=== PATIENT | male | born 1945 | race Caucasian/White ===

== ENCOUNTER 2019-02-01 15:06 | Inpatient (IN) | payer MEDICARE, OTHER ==
[~2019-02-01] VITALS: Ht 170.2 cm; Wt 112.5 kg
[2019-02-01] MEDS ORDERED: PIPERACILLIN/TAZOBACTAM 4.5 GM in IV NORMAL SALINE 100ML 100 ML IV ONE (16:15)
[2019-02-01] MEDS ORDERED: MORPHINE SULFATE 10 MG/ML VIAL. IV ONE ×2 (16:15→17:45)
[2019-02-01] MEDS ORDERED: VANCOMYCIN PER PHARMACY MC ONE (16:15)
[2019-02-01] MEDS ORDERED: LIDOCAINE 1%/EPI 1:100,000 20 ML VIAL. INJ ONE (16:15)
[2019-02-01] MEDS ORDERED: DIPHTH,PERTUSS(ACELL),TET TOX 0.5 ML DISP.SYRIN. VAX IM ONE (16:15)
[2019-02-01 16:24] LABS: BASO % 0 % (0-3); EOS # 0.1 x10^3/uL (0.0-0.7); EOS % 2 % (0-3); HEMATOCRIT 42.3 % (39.0-53.0); HEMOGLOBIN 14.5 g/dL (13.0-17.5); LYMPH # 0.6 x10^3/uL (1.0-4.8); LYMPH % 9 % (24-48); MEAN CORPUSCULAR HEMOGLOBIN 32 pg (25-35); MEAN CORPUSCULAR HGB CONC 34 g/dL (31-37); MEAN CORPUSCULAR VOLUME 94 fL (79-100); MONO # 0.8 x10^3/uL (0.0-1.1); MONO % 11 % (0-9); NEUT # 5.6 x10^3/uL (1.8-7.7); NEUT % 78 % (31-73); PLATELET COUNT 205 x10^3/uL (140-400); RED CELL DISTRIBUTION WIDTH 13.6 % (11.5-14.5); WHITE BLOOD COUNT 7.2 x10^3/uL (4.0-11.0)
[2019-02-01] MEDS ORDERED: VANCOMYCIN 2 GM in IV NORMAL SALINE 500ML BAG 500 ML IV ONE (16:30)
[2019-02-01 16:34] LABS: CALCIUM 8.7 mg/dL (8.5-10.1); GFR 73.5; POTASSIUM 4.3 mmol/L (3.5-5.1)
[2019-02-01] MEDS: IV NORMAL SALINE 1000ML BAG 1,000 ML IV SCH ×2 (16:44→17:52)
[2019-02-01 16:53] LABS: ALBUMIN 3.5 g/dL (3.4-5.0); ALBUMIN/GLOBULIN RATIO 1.2 (1.0-1.7); TOTAL BILIRUBIN 0.3 mg/dL (0.2-1.0); TOTAL PROTEIN 6.4 g/dL (6.4-8.2)
[2019-02-01] MEDS ORDERED: PIP/TAZO PER PHARMACY MC PRN (20:45)
[2019-02-01] MEDS ORDERED: oxyCODONE/APAP 5/325 1 TAB TABLET PO PRN (20:45)
--- NOTE | 2019-02-01 20:45 | PDOC1 ---
History and Physical Date of Admission Date of Admission DATE: 02/01/19 TIME: 20:40 Source Source: Chart review, Patient History of Present Illness History of Present Illness Mr. degroot presented to the ER with left leg redness with pain. He has some induration of the area. I+D attempted in ER, but pain persists, and area still swollen and very beefy red. He has seen primary care 3 days ago, started on bactrim, has gotten 5 doses, and pain and redness and swelling have all worsened. Area is about 20 cm of serious Past Medical History Cardiovascular: No pertinent hx Pulmonary: No pertinent hx GI: No pertinent hx Heme/Onc: No pertinent hx Past Surgical History Past Surgical History: No pertinent history Family History Family History: Heart Disease Social History Smoke: No ALCOHOL: rare Current Medications Current Medications Current Medications Sodium Chloride 1,000 ml @ 1,980 mls/hr Q31M IV Last administered on 02/01/19at 17:53; Start 02/01/19 at 16:13; Stop 02/01/19 at 17:13; Status DC Piperacillin Sod/ Tazobactam Sod 4.5 gm/Sodium Chloride 100 ml @ 200 mls/hr 1X ONCE IV Last administered on 02/01/19at 17:01; Start 02/01/19 at 16:15; Stop 02/01/19 at 16:44; Status DC Vancomycin HCl (Vanco Per Pharmacy) 1 each 1X ONCE MC ; Start 02/01/19 at 16:15; Stop 02/01/19 at 18:08; Status DC Lidocaine/ Epinephrine (LIDOCAINE 1%-EPI 1:100,000 Multi-Dose) 20 ml 1X ONCE INJ Last administered on 02/01/19at 16:49; Start 02/01/19 at 16:15; Stop 02/01/19 at 16:20; Status DC Diphtheria/ Tetanus/Acell Pertussis (Boostrix) 0.5 ml ONCE ONCE VAX IM Last administered on 02/01/19at 17:05; Start 02/01/19 at 16:15; Stop 02/01/19 at 16:20; Status DC Morphine Sulfate (Morphine Sulfate) 5 mg 1X ONCE IV Last administered on 02/01/19at 16:46; Start 02/01/19 at 16:15; Stop 02/01/19 at 16:20; Status DC Vancomycin HCl 2 gm/Sodium Chloride 500 ml @ 250 mls/hr 1X ONCE IV Last administered on 02/01/19at 17:44; Start 02/01/19 at 16:30; Stop 02/01/19 at 18:29; Status DC Morphine Sulfate (Morphine Sulfate) 5 mg 1X ONCE IV Last administered on 02/01/19at 17:54; Start 02/01/19 at 17:45; Stop 02/01/19 at 17:46; Status DC Allergies Allergies: Coded Allergies: No Known Drug Allergies (Unverified , 02/01/19) ROS General: YES: Chills, Fatigue, Malaise PSYCHOLOGICAL ROS: YES: Sleep disturbances; No: Anxiety, Behavioral Disorder, Concentration difficultie, Decreased libido, Depression, Disorientation, Hallucinations, Hostility, Irritablity, Memory difficulties, Mood Swings, Obsessive thoughts, Suicidal ideation, Other Eyes: No Blurry vision, No Decreased vision, No Double vision, No Dry eyes, No Excessive tearing, No Eye Pain, No Itchy Eyes, No Loss of vision, No Photophobia, No Scotomata, No Uses contacts, No Uses glasses, No Other HEENT: No: Heacaches, Visual Changes, Hearing change, Nasal congestion, Nasal discharge, Oral lesions, Sinus pain, Sore Throat, Epistaxis, Sneezing, Snoring, Tinnitus, Vertigo, Vocal changes, Other ENDOCRINE: No: Breast Changes, Galactorrhea, Hair Pattern Changes, Hot Flashes, Malaise/lethargy, Mood Swings, Palpitations, Polydipsia/polyuria, Skin Changes, Temperature Intolerance, Unexpected Weight Changes, Other Respiratory: No: Cough, Hemoptysis, Orthopnea, Pleuritic Pain, Shortness of breath, SOB with excertion, Sputum Changes, Stridor, Tachypnea, Wheezing, Other Cardiovascular: No Chest Pain, No Palpitations, No Orthopnea, No Paroxysmal Noc. Dyspnea, No Edema, No Lt Headedness, No Other Gastrointestinal: No Nausea, No Vomiting, No Abdominal Pain, No Diarrhea, No Constipation, No Melena, No Hematochezia, No Other Genitourinary: No Dysuria, No Frequency, No Incontinence, No Hematuria, No Retention, No Discharge, No Urgency, No Pain, No Flank Pain, No Other, No , No , No , No , No , No , No Musculoskeletal: Yes Joint Pain, Yes Joint Stiffness; No Gait Disturbance, No Joint Swelling, No Muscle Pain, No Muscular Weakness, No Pain In:, No Swelling In:, No Other Neurological: No Behavorial Changes, No Bowel/Bladder ControlChng, No Confusion, No Dizziness, No Gait Disturbance, No Headaches, No Impaired Coord/balance, No Memory Loss, No Numbness/Tingling, No Seizures, No Speech Problems, No Tremors, No Visual Changes, No Weakness, No Other Skin: Yes Dry Skin; No Eczema, No Hair Changes, No Lumps, No Mole Changes, No Mottling, No Nail Changes, No Pruritus, No Rash, No Skin Lesion Changes, No Other, No Acne Physical Exam General: Alert, Cooperative, No acute distress HEENT: PERRLA, Mucous membr. moist/pink Lungs: Clear to auscultation, Normal air movement Heart: S1S2, no gallops Abdomen: Normal bowel sounds, Soft Extremities: No cyanosis, No edema Skin: No breakdown Neuro: Normal gait, Normal speech, Normal tone, Cranial nerves 3-12 NL Psych/Mental Status: Mental status NL, Mood NL Vitals Vitals Vital Signs Date Time Temp Pulse Resp B/P (MAP) Pulse Ox O2 Delivery O2 Flow Rate FiO2 02/01/19 20:00 94 20 111/48 (69) 95 Room Air 02/01/19 15:25 97.7 97.7 Labs Labs Laboratory Tests Test 02/01/19 15:50 02/01/19 19:55 White Blood Count 7.2 x10^3/uL (4.0-11.0) Red Blood Count 4.50 x10^6/uL (4.30-5.70) Hemoglobin 14.5 g/dL (13.0-17.5) Hematocrit 42.3 % (39.0-53.0) Mean Corpuscular Volume 94 fL (79-100) Mean Corpuscular Hemoglobin 32 pg (25-35) Mean Corpuscular Hemoglobin Concent 34 g/dL (31-37) Red Cell Distribution Width 13.6 % (11.5-14.5) Platelet Count 205 x10^3/uL (140-400) Neutrophils (%) (Auto) 78 % (31-73) Lymphocytes (%) (Auto) 9 % (24-48) Monocytes (%) (Auto) 11 % (0-9) Eosinophils (%) (Auto) 2 % (0-3) Basophils (%) (Auto) 0 % (0-3) Neutrophils # (Auto) 5.6 x10^3/uL (1.8-7.7) Lymphocytes # (Auto) 0.6 x10^3/uL (1.0-4.8) Monocytes # (Auto) 0.8 x10^3/uL (0.0-1.1) Eosinophils # (Auto) 0.1 x10^3/uL (0.0-0.7) Basophils # (Auto) 0.0 x10^3/uL (0.0-0.2) Sodium Level 139 mmol/L (136-145) Potassium Level 4.3 mmol/L (3.5-5.1) Chloride Level 102 mmol/L (98-107) Carbon Dioxide Level 26 mmol/L (21-32) Anion Gap 11 (6-14) Blood Urea Nitrogen 13 mg/dL (8-26) Creatinine 1.0 mg/dL (0.7-1.3) Estimated GFR (Cockcroft-Gault) 73.5 BUN/Creatinine Ratio 13 (6-20) Glucose Level 112 mg/dL (70-99) Lactic Acid Level 1.3 mmol/L (0.4-2.0) 0.9 mmol/L (0.4-2.0) Calcium Level 8.7 mg/dL (8.5-10.1) Total Bilirubin 0.3 mg/dL (0.2-1.0) Aspartate Amino Transf (AST/SGOT) 15 U/L (15-37) Alanine Aminotransferase (ALT/SGPT) 20 U/L (16-63) Alkaline Phosphatase 93 U/L (46-116) Total Protein 6.4 g/dL (6.4-8.2) Albumin 3.5 g/dL (3.4-5.0) Albumin/Globulin Ratio 1.2 (1.0-1.7) Procalcitonin < 0.10 ng/mL (0.00-0.10) Laboratory Tests Test 02/01/19 15:50 02/01/19 19:55 White Blood Count 7.2 x10^3/uL (4.0-11.0) Red Blood Count 4.50 x10^6/uL (4.30-5.70) Hemoglobin 14.5 g/dL (13.0-17.5) Hematocrit 42.3 % (39.0-53.0) Mean Corpuscular Volume 94 fL (79-100) Mean Corpuscular Hemoglobin 32 pg (25-35) Mean Corpuscular Hemoglobin Concent 34 g/dL (31-37) Red Cell Distribution Width 13.6 % (11.5-14.5) Platelet Count 205 x10^3/uL (140-400) Neutrophils (%) (Auto) 78 % (31-73) Lymphocytes (%) (Auto) 9 % (24-48) Monocytes (%) (Auto) 11 % (0-9) Eosinophils (%) (Auto) 2 % (0-3) Basophils (%) (Auto) 0 % (0-3) Neutrophils # (Auto) 5.6 x10^3/uL (1.8-7.7) Lymphocytes # (Auto) 0.6 x10^3/uL (1.0-4.8) Monocytes # (Auto) 0.8 x10^3/uL (0.0-1.1) Eosinophils # (Auto) 0.1 x10^3/uL (0.0-0.7) Basophils # (Auto) 0.0 x10^3/uL (0.0-0.2) Sodium Level 139 mmol/L (136-145) Potassium Level 4.3 mmol/L (3.5-5.1) Chloride Level 102 mmol/L (98-107) Carbon Dioxide Level 26 mmol/L (21-32) Anion Gap 11 (6-14) Blood Urea Nitrogen 13 mg/dL (8-26) Creatinine 1.0 mg/dL (0.7-1.3) Estimated GFR (Cockcroft-Gault) 73.5 BUN/Creatinine Ratio 13 (6-20) Glucose Level 112 mg/dL (70-99) Lactic Acid Level 1.3 mmol/L (0.4-2.0) 0.9 mmol/L (0.4-2.0) Calcium Level 8.7 mg/dL (8.5-10.1) Total Bilirubin 0.3 mg/dL (0.2-1.0) Aspartate Amino Transf (AST/SGOT) 15 U/L (15-37) Alanine Aminotransferase (ALT/SGPT) 20 U/L (16-63) Alkaline Phosphatase 93 U/L (46-116) Total Protein 6.4 g/dL (6.4-8.2) Albumin 3.5 g/dL (3.4-5.0) Albumin/Globulin Ratio 1.2 (1.0-1.7) Procalcitonin < 0.10 ng/mL (0.00-0.10) VTE Prophylaxis Ordered VTE Prophylaxis Devices: No VTE Pharmacological Prophylaxi: Yes Assessment/Plan Assessment/Plan left thigh abcess and cellulits s/p bactrim without improvement IV vanco, surg consult, may need I and D obese, BMI 38 TAJ MONDRAGON MD Feb 01, 2019 20:45
--- NOTE | 2019-02-01 20:56 | PHYS DOC ---
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 Patient states he was seen by the PCP 3 days ago started on Bactrim. He states the area of cellulitis has grown be in the abscess itself has also grown bigger. Denies any fever. Denies any nausea vomiting. (ALEJO OTTO APRN) Review of Systems Review of Systems Constitutional: Denies fever or chills [] Eyes: Denies change in visual acuity, redness, or eye pain [] HENT: Denies nasal congestion or sore throat [] Respiratory: Denies cough or shortness of breath [] Cardiovascular: No additional information not addressed in HPI [] GI: Denies abdominal pain, nausea, vomiting, bloody stools or diarrhea [] : Denies dysuria or hematuria [] Musculoskeletal: Denies back pain or joint pain [] Integument: Reports abscess and cellulitis on the left thigh Neurologic: Denies headache, focal weakness or sensory changes [] All other systems were reviewed and found to be within normal limits, except as documented in this note. (ALEJO OTTO APRN) Current Medications Current Medications Current Medications Medications (Trade) Dose Ordered Sig/Tereso Start Time Stop Time Status Last Admin Dose Admin Diphtheria/ Tetanus/Acell Pertussis (Boostrix) 0.5 ml ONCE ONCE 02/01/19 16:15 02/01/19 16:20 DC 02/01/19 17:05 0.5 ML Lidocaine/ Epinephrine (LIDOCAINE 1%-EPI 1:100,000 Multi-Dose) 20 ml 1X ONCE 02/01/19 16:15 02/01/19 16:20 DC 02/01/19 16:49 20 ML Morphine Sulfate (Morphine Sulfate) 5 mg 1X ONCE 02/01/19 17:45 02/01/19 17:46 DC 02/01/19 17:54 5 MG Piperacillin Sod/ Tazobactam Sod 4.5 gm/Sodium Chloride 100 ml @ 200 mls/hr 1X ONCE 02/01/19 16:15 02/01/19 16:44 DC 02/01/19 17:01 200 MLS/HR Sodium Chloride 1,000 ml @ 1,980 mls/hr Q31M 02/01/19 16:13 02/01/19 17:13 DC 02/01/19 17:53 1,980 MLS/HR Vancomycin HCl (Vanco Per Pharmacy) 1 each 1X ONCE 02/01/19 16:15 02/01/19 18:08 DC Vancomycin HCl 2 gm/Sodium Chloride 500 ml @ 250 mls/hr 1X ONCE 02/01/19 16:30 02/01/19 18:29 DC 02/01/19 17:44 250 MLS/HR (SANDRA GOLD DO) Allergies Allergies Allergies Coded Allergies Type Severity Reaction Last Updated Verified No Known Drug Allergies 02/01/19 No (SANDRA GOLD DO) Physical Exam Physical Exam Constitutional: Well developed, well nourished, no acute distress, non-toxic appearance. [] HENT: Normocephalic, atraumatic, bilateral external ears normal, oropharynx moist, no oral exudates, nose normal. [] Eyes: PERRLA, EOMI, conjunctiva normal, no discharge. [] Neck: Normal range of motion, no tenderness, supple, no stridor. [] Cardiovascular:Heart rate regular rhythm, no murmur [] Lungs & Thorax: Bilateral breath sounds clear to auscultation [] Abdomen: Bowel sounds normal, soft, no tenderness, no masses, no pulsatile ma sses. [] Skin: Left ventral thigh with an abscess approximately 5 x 5 cm with surrounding moderate cellulitis, the abscess is fluctuant, very erythematous, draining yellow purulent material, the area is warm tender to touch. Back: No tenderness, no CVA tenderness. [] Extremities: No tenderness, no cyanosis, no clubbing, ROM intact, no edema. [] Neurologic: Alert and oriented X 3, normal motor function, normal sensory function, no focal deficits noted. [] Psychologic: Affect normal, judgement normal, mood normal. [] (ALEJO OTTO APRN) Current Patient Data Vital Signs Vital Signs Date Time Temp Pulse Resp B/P (MAP) Pulse Ox O2 Delivery O2 Flow Rate FiO2 02/01/19 18:15 78 20 139/58 (85) 94 Room Air 02/01/19 15:25 97.7 97.7 (SANDRA GOLD DO) Lab Values Laboratory Tests Test 02/01/19 15:50 White Blood Count 7.2 x10^3/uL (4.0-11.0) Red Blood Count 4.50 x10^6/uL (4.30-5.70) Hemoglobin 14.5 g/dL (13.0-17.5) Hematocrit 42.3 % (39.0-53.0) Mean Corpuscular Volume 94 fL (79-100) Mean Corpuscular Hemoglobin 32 pg (25-35) Mean Corpuscular Hemoglobin Concent 34 g/dL (31-37) Red Cell Distribution Width 13.6 % (11.5-14.5) Platelet Count 205 x10^3/uL (140-400) Neutrophils (%) (Auto) 78 % (31-73) H Lymphocytes (%) (Auto) 9 % (24-48) L Monocytes (%) (Auto) 11 % (0-9) H Eosinophils (%) (Auto) 2 % (0-3) Basophils (%) (Auto) 0 % (0-3) Neutrophils # (Auto) 5.6 x10^3/uL (1.8-7.7) Lymphocytes # (Auto) 0.6 x10^3/uL (1.0-4.8) L Monocytes # (Auto) 0.8 x10^3/uL (0.0-1.1) Eosinophils # (Auto) 0.1 x10^3/uL (0.0-0.7) Basophils # (Auto) 0.0 x10^3/uL (0.0-0.2) Sodium Level 139 mmol/L (136-145) Potassium Level 4.3 mmol/L (3.5-5.1) Chloride Level 102 mmol/L (98-107) Carbon Dioxide Level 26 mmol/L (21-32) Anion Gap 11 (6-14) Blood Urea Nitrogen 13 mg/dL (8-26) Creatinine 1.0 mg/dL (0.7-1.3) Estimated GFR (Cockcroft-Gault) 73.5 BUN/Creatinine Ratio 13 (6-20) Glucose Level 112 mg/dL (70-99) H Lactic Acid Level 1.3 mmol/L (0.4-2.0) Calcium Level 8.7 mg/dL (8.5-10.1) Total Bilirubin 0.3 mg/dL (0.2-1.0) Aspartate Amino Transferase (AST) 15 U/L (15-37) Alanine Aminotransferase (ALT) 20 U/L (16-63) Alkaline Phosphatase 93 U/L (46-116) Total Protein 6.4 g/dL (6.4-8.2) Albumin 3.5 g/dL (3.4-5.0) Albumin/Globulin Ratio 1.2 (1.0-1.7) Procalcitonin < 0.10 ng/mL (0.00-0.10) Laboratory Tests 02/01/19 15:50 Laboratory Tests 02/01/19 15:50 Microbiology 02/01/19 Blood Culture - Preliminary, Resulted NO GROWTH AFTER 1 DAY (SANDRA GOLD DO) EKG EKG [] (ALEJO OTTO APRN) Radiology/Procedures Radiology/Procedures Indication: abscess left thigh Procedure: The patient was positioned appropriately. Local anesthesia was 1% of lidocaine with epinephrine. An incision was then made over the apex of the lesion with an 11 blade and moderate amount of yellow purulent material was expressed. The drainage cavity was irrigated and covered with sterile gauze. The patient�s tetanus status updated as needed. The patient tolerated the procedure well. Complications: none.[] (ALEJO OTTO APRN) Course & Med Decision Making Course & Med Decision Making Pertinent Labs and Imaging studies reviewed. (See chart for details) This is a 73-year-old male patient presenting to the ED today with an abscess with cellulitis on the left ventral thigh. Patient has been on Bactrim for roughly 3 days with no improvement. I attempted to I&D the abscess, mild amount of drainage was expressed. Patient will be admitted for IV antibiotics and general surgery evaluation. His labs are negative for any acute findings. He was started on Zosyn and vancomycin in the ED. Tetanus was updated. (ALEJO OTTO APRN) Dragon Disclaimer Dragon Disclaimer This electronic medical record was generated, in whole or in part, using a voice recognition dictation system. (ALEJO OTTO APRN) Departure Departure Impression: Primary Impression: Cellulitis and abscess of lower extremity Disposition: ADMITTED INPATIENT Condition: STABLE Referrals: NATALIIA MAY MD (PCP) Attending Signature Attending Signature I have reviewed the PA/COPY CENTER SPECIALIST's note and plan of care. I was available for consultation as needed during the patient's visit in the emergency department. I agree with the clinical impression, plan, and disposition. (SANDRA GOLD DO) ALEJO OTTO [employer] MAINTENANCE WORKER Feb 01, 2019 20:56 SANDRA GOLD DO Feb 02, 2019 18:19
[2019-02-01] MEDS ORDERED: MORPHINE SULFATE 4 MG/ML VIAL. IV PRN (21:00)
[2019-02-01] MEDS ORDERED: ONDANSETRON PF 4 MG/2 ML VIAL. IV PRN (21:00)
[2019-02-01] MEDS ORDERED: ACETAMINOPHEN 325 MG TABLET. PO PRN (21:00)
[2019-02-01 23:00] VITALS: BP 115/64
[2019-02-02] MEDS: ENOXAPARIN 40 MG/0.4 ML SYRINGE. SQ SCH ×2 (00:28→20:51)
[2019-02-02] MEDS: PIPERACILLIN/TAZOBACTAM 3.375 GM in IV NORMAL SALINE 50ML 50 ML IV SCH ×5 (00:29→23:19)
[2019-02-02] MEDS: VANCOMYCIN PER PHARMACY MC PRN ×2 (00:51→19:11)
--- NOTE | 2019-02-02 00:51 | NUR ---
Pharmacy Vancomycin Dosing Note S:Consulted to monitor and dose vancomycin started 02/01/19. O:ALTAF MCGUIRE is a 73 year old M with Abscess Cellulitis . Height: 5 feet, 7 inches Weight: 111.486562 kg [place] Body Weight: 66.10 Adjusted Body Weight: 84.06 Dosing Weight: Actual Other Antibiotics: ZOSYN 3.375 GM Q6H LABS: Last BUN: 13 Last Creatinine: 1 Creatinine Clearance: 80 mL/min Last WBC: 7.2 Last Procalcitonin: <0.1 Tmax (past 24 hours): Microbiology: I/O: Drug Levels: Last level: on at Last dose given 02/01/19 at 1800 Vancomycin Dosing: Loading Dose: 2000 mg x1 Dosing Weight: Actual Target Trough: 10-20 A: Based on: WT AND CRCL P: 1. Begin Vancomycin 1750 mg IV q12h 2. Follow up Trough level on 02/03/19 at 0530 3. Pharmacy will continue to monitor, follow and adjust therapy as needed. JAYNE RODRIGUEZ RPH, 02/02/1949 Signed: 02/02/19 at 50 by JAYNE RODRIGUEZ RPH PHA
[2019-02-02 03:00] VITALS: BP 110/60
[2019-02-02 04:22] LABS: BASO % 1 % (0-3); EOS # 0.1 x10^3/uL (0.0-0.7); EOS % 2 % (0-3); HEMATOCRIT 39.8 % (39.0-53.0); HEMOGLOBIN 13.3 g/dL (13.0-17.5); LYMPH # 0.6 x10^3/uL (1.0-4.8); LYMPH % 11 % (24-48); MEAN CORPUSCULAR HEMOGLOBIN 32 pg (25-35); MEAN CORPUSCULAR HGB CONC 34 g/dL (31-37); MEAN CORPUSCULAR VOLUME 95 fL (79-100); MONO # 0.7 x10^3/uL (0.0-1.1); MONO % 12 % (0-9); NEUT # 4.4 x10^3/uL (1.8-7.7); NEUT % 75 % (31-73); PLATELET COUNT 183 x10^3/uL (140-400); RED CELL DISTRIBUTION WIDTH 13.8 % (11.5-14.5); WHITE BLOOD COUNT 5.9 x10^3/uL (4.0-11.0)
[2019-02-02 04:38] LABS: CALCIUM 8.3 mg/dL (8.5-10.1); GFR 73.5
[2019-02-02] MEDS ORDERED: FLUT16SP (04:42)
[2019-02-02] MEDS ORDERED: SULF-143 (04:42)
[2019-02-02] MEDS ORDERED: TAMSULOSIN PO (04:42)
[2019-02-02] MEDS: VANCOMYCIN 1.75 GM in IV NORMAL SALINE 500ML BAG 500 ML IV SCH ×2 (06:34→18:12)
[2019-02-02 07:00] VITALS: BP 114/57
--- NOTE | 2019-02-02 08:10 | PDOC2 ---
BOB MALAVE TONGUE BINDER 02/02/19 0810: CONSULT Date of Consult Date of Consult DATE: 02/02/19 TIME: 08:05 Reason for Consult Reason for Consult: thigh cellulitis Referring Physician Referring Physician: ER Identification/Chief Complaint Chief Complaint thigh pain Source Source: Chart review, Patient History of Present Illness Reason for Visit: 4 days of infection to left thigh, treated with oral abx, no improvement. I&D attempted in ER, minimal drainage. Some pain. No fevers or chills. No known injury Past Medical History Cardiovascular: No pertinent hx Pulmonary: No pertinent hx GI: No pertinent hx Heme/Onc: No pertinent hx Past Surgical History Past Surgical History: No pertinent history Family History Family History: Heart Disease Social History No ALCOHOL: rare Lives: Alone Current Problem List Problem List Problems Medical Problems: (1) Cellulitis and abscess of lower extremity Status: Acute Current Medications Current Medications Current Medications Sodium Chloride 1,000 ml @ 1,980 mls/hr Q31M IV Last administered on 02/01/19at 17:53; Start 02/01/19 at 16:13; Stop 02/01/19 at 17:13; Status DC Piperacillin Sod/ Tazobactam Sod 4.5 gm/Sodium Chloride 100 ml @ 200 mls/hr 1X ONCE IV Last administered on 02/01/19at 17:01; Start 02/01/19 at 16:15; Stop 02/01/19 at 16:44; Status DC Vancomycin HCl (Vanco Per Pharmacy) 1 each 1X ONCE MC ; Start 02/01/19 at 16:15; Stop 02/01/19 at 18:08; Status DC Lidocaine/ Epinephrine (LIDOCAINE 1%-EPI 1:100,000 Multi-Dose) 20 ml 1X ONCE INJ Last administered on 02/01/19at 16:49; Start 02/01/19 at 16:15; Stop 02/01/19 at 16:20; Status DC Diphtheria/ Tetanus/Acell Pertussis (Boostrix) 0.5 ml ONCE ONCE VAX IM Last administered on 02/01/19at 17:05; Start 02/01/19 at 16:15; Stop 02/01/19 at 16:20; Status DC Morphine Sulfate (Morphine Sulfate) 5 mg 1X ONCE IV Last administered on 02/01/19at 16:46; Start 02/01/19 at 16:15; Stop 02/01/19 at 16:20; Status DC Vancomycin HCl 2 gm/Sodium Chloride 500 ml @ 250 mls/hr 1X ONCE IV Last administered on 02/01/19at 17:44; Start 02/01/19 at 16:30; Stop 02/01/19 at 18:29; Status DC Morphine Sulfate (Morphine Sulfate) 5 mg 1X ONCE IV Last administered on 02/01/19at 17:54; Start 02/01/19 at 17:45; Stop 02/01/19 at 17:46; Status DC Enoxaparin Sodium (Lovenox Per Pharmacy Prophylaxis Dosing) 1 each PRN DAILY PRN MC SEE COMMENTS; Start 02/01/19 at 20:45 Oxycodone/ Acetaminophen (Percocet 5/325) 1 tab PRN Q4HRS PRN PO SEVERE PAIN 7- 10; Start 02/01/19 at 20:45 Piperacillin Sod/ Tazobactam Sod (Zosyn Per Pharmacy) 1 each PRN DAILY PRN MC SEE COMMENTS; Start 02/01/19 at 20:45 Enoxaparin Sodium (Lovenox 40mg Syringe) 40 mg Q24H SQ Last administered on 02/02/19at 00:29; Start 02/01/19 at 21:00 Ondansetron HCl (Zofran) 4 mg PRN Q8HRS PRN IV NAUSEA/VOMITING 1ST CHOICE; Start 02/01/19 at 21:00; Stop 02/02/19 at 20:59 Morphine Sulfate (Morphine Sulfate) 4 mg PRN Q2HR PRN IV SEVERE PAIN 7-10; Start 02/01/19 at 21:00; Stop 02/02/19 at 20:59 Acetaminophen (Tylenol) 650 mg PRN Q4HRS PRN PO FEVER; Start 02/01/19 at 21:00; Stop 02/02/19 at 20:59 Piperacillin Sod/ Tazobactam Sod 3.375 gm/Sodium Chloride 50 ml @ 100 mls/hr Q6HRS IV Last administered on 02/02/19at 05:46; Start 02/02/19 at 00:00 Vancomycin HCl 1.75 gm/Sodium Chloride 500 ml @ 250 mls/hr Q12H IV Last administered on 02/02/19at 06:34; Start 02/02/19 at 06:00 Vancomycin HCl (Vanco Per Pharmacy) 1 each PRN DAILY PRN MC SEE COMMENTS Last administered on 02/02/19at 00:51; Start 02/01/19 at 22:30 Lactobacillus Rhamnosus (Culturelle) 1 cap BID PO ; Start 02/02/19 at 09:00 Vancomycin HCl (Vancomycin Trough Level) 1 each 1X ONCE MC ; Start 02/03/19 at 05:30; Stop 02/03/19 at 05:31 Active Scripts Active Reported Sulfamethoxazole-Tmp Ds Tablet (Sulfamethoxazole/Trimethoprim) 1 Each Tablet 1 BID Fluticasone Propionate Nasal Friendly (Fluticasone Propionate) 16 Gm Friendly.susp 16 DAILY [Tamsulosin] PO DAILY Allergies Allergies: Coded Allergies: No Known Drug Allergies (Unverified , 02/01/19) ROS General: No: Night Sweats, Fatigue PSYCHOLOGICAL ROS: No: Anxiety, Depression Eyes: No Blurry vision, No Double vision HEENT: No: Heacaches, Sore Throat Hematological and Lymphatic: No: Bleeding Problems, Blood Clots Respiratory: No: Cough, Shortness of breath Gastrointestinal: No Nausea, No Vomiting Genitourinary: No Dysuria, No Hematuria Musculoskeletal: Yes Muscle Pain; No Joint Pain Neurological: No Confusion, No Impaired Coord/balance Skin: Yes Other (see hpi) Physical Exam General: Alert, Oriented X3, Cooperative, No acute distress HEENT: PERRLA, Mucous membr. moist/pink Lungs: Clear to auscultation, Normal air movement Heart: Regular rate, Normal S1, Normal S2, No murmurs Abdomen: Normal bowel sounds, Soft, No tenderness Extremities: No clubbing, No cyanosis Skin: Other (left thigh, erythema and induration, minimal drainage, no significant fluctunace ) Vitals VITALS Vital Signs Date Time Temp Pulse Resp B/P (MAP) Pulse Ox O2 Delivery O2 Flow Rate FiO2 02/02/19 03:00 97.7 73 12 110/60 (77) 93 Room Air 97.7 Labs Labs Laboratory Tests Test 02/01/19 15:50 02/01/19 19:55 02/02/19 04:00 White Blood Count 7.2 x10^3/uL (4.0-11.0) 5.9 x10^3/uL (4.0-11.0) Red Blood Count 4.50 x10^6/uL (4.30-5.70) 4.20 x10^6/uL (4.30-5.70) Hemoglobin 14.5 g/dL (13.0-17.5) 13.3 g/dL (13.0-17.5) Hematocrit 42.3 % (39.0-53.0) 39.8 % (39.0-53.0) Mean Corpuscular Volume 94 fL (79-100) 95 fL (79-100) Mean Corpuscular Hemoglobin 32 pg (25-35) 32 pg (25-35) Mean Corpuscular Hemoglobin Concent 34 g/dL (31-37) 34 g/dL (31-37) Red Cell Distribution Width 13.6 % (11.5-14.5) 13.8 % (11.5-14.5) Platelet Count 205 x10^3/uL (140-400) 183 x10^3/uL (140-400) Neutrophils (%) (Auto) 78 % (31-73) 75 % (31-73) Lymphocytes (%) (Auto) 9 % (24-48) 11 % (24-48) Monocytes (%) (Auto) 11 % (0-9) 12 % (0-9) Eosinophils (%) (Auto) 2 % (0-3) 2 % (0-3) Basophils (%) (Auto) 0 % (0-3) 1 % (0-3) Neutrophils # (Auto) 5.6 x10^3/uL (1.8-7.7) 4.4 x10^3/uL (1.8-7.7) Lymphocytes # (Auto) 0.6 x10^3/uL (1.0-4.8) 0.6 x10^3/uL (1.0-4.8) Monocytes # (Auto) 0.8 x10^3/uL (0.0-1.1) 0.7 x10^3/uL (0.0-1.1) Eosinophils # (Auto) 0.1 x10^3/uL (0.0-0.7) 0.1 x10^3/uL (0.0-0.7) Basophils # (Auto) 0.0 x10^3/uL (0.0-0.2) 0.0 x10^3/uL (0.0-0.2) Sodium Level 139 mmol/L (136-145) 142 mmol/L (136-145) Potassium Level 4.3 mmol/L (3.5-5.1) 4.0 mmol/L (3.5-5.1) Chloride Level 102 mmol/L (98-107) 107 mmol/L (98-107) Carbon Dioxide Level 26 mmol/L (21-32) 27 mmol/L (21-32) Anion Gap 11 (6-14) 8 (6-14) Blood Urea Nitrogen 13 mg/dL (8-26) 12 mg/dL (8-26) Creatinine 1.0 mg/dL (0.7-1.3) 1.0 mg/dL (0.7-1.3) Estimated GFR (Cockcroft-Gault) 73.5 73.5 BUN/Creatinine Ratio 13 (6-20) Glucose Level 112 mg/dL (70-99) 106 mg/dL (70-99) Lactic Acid Level 1.3 mmol/L (0.4-2.0) 0.9 mmol/L (0.4-2.0) Calcium Level 8.7 mg/dL (8.5-10.1) 8.3 mg/dL (8.5-10.1) Total Bilirubin 0.3 mg/dL (0.2-1.0) Aspartate Amino Transf (AST/SGOT) 15 U/L (15-37) Alanine Aminotransferase (ALT/SGPT) 20 U/L (16-63) Alkaline Phosphatase 93 U/L (46-116) Total Protein 6.4 g/dL (6.4-8.2) Albumin 3.5 g/dL (3.4-5.0) Albumin/Globulin Ratio 1.2 (1.0-1.7) Procalcitonin < 0.10 ng/mL (0.00-0.10) Laboratory Tests Test 02/01/19 15:50 02/01/19 19:55 02/02/19 04:00 White Blood Count 7.2 x10^3/uL (4.0-11.0) 5.9 x10^3/uL (4.0-11.0) Red Blood Count 4.50 x10^6/uL (4.30-5.70) 4.20 x10^6/uL (4.30-5.70) Hemoglobin 14.5 g/dL (13.0-17.5) 13.3 g/dL (13.0-17.5) Hematocrit 42.3 % (39.0-53.0) 39.8 % (39.0-53.0) Mean Corpuscular Volume 94 fL (79-100) 95 fL (79-100) Mean Corpuscular Hemoglobin 32 pg (25-35) 32 pg (25-35) Mean Corpuscular Hemoglobin Concent 34 g/dL (31-37) 34 g/dL (31-37) Red Cell Distribution Width 13.6 % (11.5-14.5) 13.8 % (11.5-14.5) Platelet Count 205 x10^3/uL (140-400) 183 x10^3/uL (140-400) Neutrophils (%) (Auto) 78 % (31-73) 75 % (31-73) Lymphocytes (%) (Auto) 9 % (24-48) 11 % (24-48) Monocytes (%) (Auto) 11 % (0-9) 12 % (0-9) Eosinophils (%) (Auto) 2 % (0-3) 2 % (0-3) Basophils (%) (Auto) 0 % (0-3) 1 % (0-3) Neutrophils # (Auto) 5.6 x10^3/uL (1.8-7.7) 4.4 x10^3/uL (1.8-7.7) Lymphocytes # (Auto) 0.6 x10^3/uL (1.0-4.8) 0.6 x10^3/uL (1.0-4.8) Monocytes # (Auto) 0.8 x10^3/uL (0.0-1.1) 0.7 x10^3/uL (0.0-1.1) Eosinophils # (Auto) 0.1 x10^3/uL (0.0-0.7) 0.1 x10^3/uL (0.0-0.7) Basophils # (Auto) 0.0 x10^3/uL (0.0-0.2) 0.0 x10^3/uL (0.0-0.2) Sodium Level 139 mmol/L (136-145) 142 mmol/L (136-145) Potassium Level 4.3 mmol/L (3.5-5.1) 4.0 mmol/L (3.5-5.1) Chloride Level 102 mmol/L (98-107) 107 mmol/L (98-107) Carbon Dioxide Level 26 mmol/L (21-32) 27 mmol/L (21-32) Anion Gap 11 (6-14) 8 (6-14) Blood Urea Nitrogen 13 mg/dL (8-26) 12 mg/dL (8-26) Creatinine 1.0 mg/dL (0.7-1.3) 1.0 mg/dL (0.7-1.3) Estimated GFR (Cockcroft-Gault) 73.5 73.5 BUN/Creatinine Ratio 13 (6-20) Glucose Level 112 mg/dL (70-99) 106 mg/dL (70-99) Lactic Acid Level 1.3 mmol/L (0.4-2.0) 0.9 mmol/L (0.4-2.0) Calcium Level 8.7 mg/dL (8.5-10.1) 8.3 mg/dL (8.5-10.1) Total Bilirubin 0.3 mg/dL (0.2-1.0) Aspartate Amino Transf (AST/SGOT) 15 U/L (15-37) Alanine Aminotransferase (ALT/SGPT) 20 U/L (16-63) Alkaline Phosphatase 93 U/L (46-116) Total Protein 6.4 g/dL (6.4-8.2) Albumin 3.5 g/dL (3.4-5.0) Albumin/Globulin Ratio 1.2 (1.0-1.7) Procalcitonin < 0.10 ng/mL (0.00-0.10) Assessment/Plan Assessment/Plan left thigh cellulitis continue abx will review with NATANAEL Kwok MD 02/02/19 0903: CONSULT Assessment/Plan Assessment/Plan Patient seen and examined by me. Left thigh wound with erythema, no tenderness. 2 cm area appears to be insect bite, no drainage from unroofing by ED depar tment. Will obtain U/S to r/o drainable abscess. Overall appears to be improving with abx. Consult wound care for cleaning and dressing of wound. Agree with Torie's assessment and plan. BOB MALAVE APRN Feb 02, 2019 08:10 NATANAEL ALICIA MD Feb 02, 2019 09:03
[2019-02-02] MEDS: LACTOBACILLUS RHAMNOSUS GG 1 CAPSULE. PO SCH ×2 (09:00→20:50)
[2019-02-02 11:00] VITALS: BP 123/61
--- NOTE | 2019-02-02 11:10 | NUR ---
SW following pt for dc needs. Chart reviewed and discussed with RN. Pt lives at home with spouse. No SW needs noted at this time.
--- NOTE | 2019-02-02 12:17 | PDOC ---
[employer] PROGRESS NOTE Chief Complaint Chief Complaint Left thigh cellulitis Dental abscess Obesity Prior hx of cancer History of Present Illness History of Present Illness 02/02/19 Pt seen and examined (area of erythema on left thigh marked w/ pen to monitor infection) Chart reviewed DW RN Vitals/I&O Vitals/I&O: Vital Signs Date Time Temp Pulse Resp B/P (MAP) Pulse Ox O2 Delivery O2 Flow Rate FiO2 02/02/19 11:00 98.1 63 16 123/61 (81) 95 Room Air 98.1 I & O 02/01/19 02/01/19 02/02/19 14:59 22:59 06:59 Intake Total 1600 ml 50 ml Balance 1600 ml 50 ml Physical Exam General: Alert, Oriented X3, Cooperative, No acute distress Heart: Regular rate, Normal S1, Normal S2, No murmurs Lungs: Clear Abdomen: Normal bowel sounds, Soft, No tenderness Extremities: No clubbing, No cyanosis, Other (left thigh cellulitis) Skin: Other (left thigh, erythema and induration, minimal drainage, no significant fluctunace ) Labs Labs: Laboratory Tests Test 02/01/19 15:50 02/01/19 19:55 02/02/19 04:00 White Blood Count 7.2 x10^3/uL (4.0-11.0) 5.9 x10^3/uL (4.0-11.0) Red Blood Count 4.50 x10^6/uL (4.30-5.70) 4.20 x10^6/uL (4.30-5.70) Hemoglobin 14.5 g/dL (13.0-17.5) 13.3 g/dL (13.0-17.5) Hematocrit 42.3 % (39.0-53.0) 39.8 % (39.0-53.0) Mean Corpuscular Volume 94 fL (79-100) 95 fL (79-100) Mean Corpuscular Hemoglobin 32 pg (25-35) 32 pg (25-35) Mean Corpuscular Hemoglobin Concent 34 g/dL (31-37) 34 g/dL (31-37) Red Cell Distribution Width 13.6 % (11.5-14.5) 13.8 % (11.5-14.5) Platelet Count 205 x10^3/uL (140-400) 183 x10^3/uL (140-400) Neutrophils (%) (Auto) 78 % (31-73) 75 % (31-73) Lymphocytes (%) (Auto) 9 % (24-48) 11 % (24-48) Monocytes (%) (Auto) 11 % (0-9) 12 % (0-9) Eosinophils (%) (Auto) 2 % (0-3) 2 % (0-3) Basophils (%) (Auto) 0 % (0-3) 1 % (0-3) Neutrophils # (Auto) 5.6 x10^3/uL (1.8-7.7) 4.4 x10^3/uL (1.8-7.7) Lymphocytes # (Auto) 0.6 x10^3/uL (1.0-4.8) 0.6 x10^3/uL (1.0-4.8) Monocytes # (Auto) 0.8 x10^3/uL (0.0-1.1) 0.7 x10^3/uL (0.0-1.1) Eosinophils # (Auto) 0.1 x10^3/uL (0.0-0.7) 0.1 x10^3/uL (0.0-0.7) Basophils # (Auto) 0.0 x10^3/uL (0.0-0.2) 0.0 x10^3/uL (0.0-0.2) Sodium Level 139 mmol/L (136-145) 142 mmol/L (136-145) Potassium Level 4.3 mmol/L (3.5-5.1) 4.0 mmol/L (3.5-5.1) Chloride Level 102 mmol/L (98-107) 107 mmol/L (98-107) Carbon Dioxide Level 26 mmol/L (21-32) 27 mmol/L (21-32) Anion Gap 11 (6-14) 8 (6-14) Blood Urea Nitrogen 13 mg/dL (8-26) 12 mg/dL (8-26) Creatinine 1.0 mg/dL (0.7-1.3) 1.0 mg/dL (0.7-1.3) Estimated GFR (Cockcroft-Gault) 73.5 73.5 BUN/Creatinine Ratio 13 (6-20) Glucose Level 112 mg/dL (70-99) 106 mg/dL (70-99) Lactic Acid Level 1.3 mmol/L (0.4-2.0) 0.9 mmol/L (0.4-2.0) Calcium Level 8.7 mg/dL (8.5-10.1) 8.3 mg/dL (8.5-10.1) Total Bilirubin 0.3 mg/dL (0.2-1.0) Aspartate Amino Transf (AST/SGOT) 15 U/L (15-37) Alanine Aminotransferase (ALT/SGPT) 20 U/L (16-63) Alkaline Phosphatase 93 U/L (46-116) Total Protein 6.4 g/dL (6.4-8.2) Albumin 3.5 g/dL (3.4-5.0) Albumin/Globulin Ratio 1.2 (1.0-1.7) Procalcitonin < 0.10 ng/mL (0.00-0.10) Review of Systems Review of Systems: No headache No fever/chills Assessment and Plan Assessmemt and Plan Problems Medical Problems: (1) Cellulitis and abscess of lower extremity Status: Acute Assessment: Left thigh cellulitis Dental abscess Obesity Prior hx of cancer Plan: Wound care Await further surgical input (pending US to r/o drainable abscess as per Dr. Deluca) IV antibiotics DVT prophylaxis Home meds Full code Comment Review of Relevant I have reviewed the following items edgar (where applicable) has been applied. Medications: Current Medications Medications (Trade) Dose Ordered Sig/Tereso Route PRN Reason Start Time Stop Time Status Last Admin Dose Admin Sodium Chloride 1,000 ml @ 1,980 mls/hr Q31M IV 02/01/19 16:13 02/01/19 17:13 DC 02/01/19 17:53 Piperacillin Sod/ Tazobactam Sod 4.5 gm/Sodium Chloride 100 ml @ 200 mls/hr 1X ONCE IV 02/01/19 16:15 02/01/19 16:44 DC 02/01/19 17:01 Lidocaine/ Epinephrine (LIDOCAINE 1%-EPI 1:100,000 Multi-Dose) 20 ml 1X ONCE INJ 02/01/19 16:15 02/01/19 16:20 DC 02/01/19 16:49 Diphtheria/ Tetanus/Acell Pertussis (Boostrix) 0.5 ml ONCE ONCE VAX IM 02/01/19 16:15 02/01/19 16:20 DC 02/01/19 17:05 Morphine Sulfate (Morphine Sulfate) 5 mg 1X ONCE IV 02/01/19 16:15 02/01/19 16:20 DC 02/01/19 16:46 Vancomycin HCl 2 gm/Sodium Chloride 500 ml @ 250 mls/hr 1X ONCE IV 02/01/19 16:30 02/01/19 18:29 DC 02/01/19 17:44 Morphine Sulfate (Morphine Sulfate) 5 mg 1X ONCE IV 02/01/19 17:45 02/01/19 17:46 DC 02/01/19 17:54 Enoxaparin Sodium (Lovenox 40mg Syringe) 40 mg Q24H SQ 02/01/19 21:00 02/02/19 00:29 Piperacillin Sod/ Tazobactam Sod 3.375 gm/Sodium Chloride 50 ml @ 100 mls/hr Q6HRS IV 02/02/19 00:00 02/02/19 05:46 Vancomycin HCl 1.75 gm/Sodium Chloride 500 ml @ 250 mls/hr Q12H IV 02/02/19 06:00 02/02/19 06:34 Vancomycin HCl (Vanco Per Pharmacy) 1 each PRN DAILY PRN MC SEE COMMENTS 02/01/19 22:30 02/02/19 00:51 KAYKAY SANCHEZ III DO Feb 02, 2019 12:17
--- NOTE | 2019-02-02 14:19 | RAD ---
EXAM: US left thigh DATE: 02/02/2019 8:10 AM COMPARISON: None INDICATION: Left thigh, possible abscess TECHNIQUE: Longitudinal and transverse imaging with intermittent Doppler sampling completed with attention to anterior left thigh FINDINGS/ IMPRESSION: Within the subcutaneous tissues of the anterior left thigh a 1.8 x 1.7 x 1 cm heterogeneously hypoechoic collection is seen with extension to the skin surface. Internal debris/heterogeneity suggests small subcutaneous collection/abscess although the soni are not well marginated. Electronically signed by: Haseeb Calderón MD (02/02/2019 2:16 PM) [facility]
--- NOTE | 2019-02-02 14:45 | NUR ---
Wound Care Pt seen for wound care consultation re: a L upper thigh abscess. L anterior upper thigh wound is dark, dusky red, draining serosanguinous drainage, has a central eruption, with significant periwound induration. Wound cleansed and packed with Aquacel AG rope and a foam dressing, recommended change every other day, pt tolerated well. Pt with no other wounds on full skin inspection, and pt would benefit from f/u in the [facility] after discharge, pt and family v/u.
[2019-02-02 15:00] VITALS: BP 139/57
[2019-02-02 19:00] VITALS: BP 125/60
[2019-02-02] MEDS ORDERED: GUAI12003 PO (19:37)
[2019-02-02] MEDS ORDERED: TAMS0.4C97 PO (19:37)
[2019-02-02] MEDS ORDERED: CITA40TA5 PO (19:37)
[2019-02-02] MEDS ORDERED: CARB15DR3 OP (19:37)
[2019-02-02 23:00] VITALS: BP 91/52
[2019-02-03 03:00] VITALS: BP 120/62
[2019-02-03 03:59] LABS: BASO % 1 % (0-3); EOS # 0.2 x10^3/uL (0.0-0.7); EOS % 3 % (0-3); HEMATOCRIT 40.1 % (39.0-53.0); HEMOGLOBIN 13.5 g/dL (13.0-17.5); LYMPH # 0.7 x10^3/uL (1.0-4.8); LYMPH % 12 % (24-48); MEAN CORPUSCULAR HEMOGLOBIN 32 pg (25-35); MEAN CORPUSCULAR HGB CONC 34 g/dL (31-37); MEAN CORPUSCULAR VOLUME 95 fL (79-100); MONO # 0.8 x10^3/uL (0.0-1.1); MONO % 14 % (0-9); NEUT # 4.3 x10^3/uL (1.8-7.7); NEUT % 71 % (31-73); PLATELET COUNT 189 x10^3/uL (140-400); RED BLOOD COUNT 4.24 x10^6/uL (4.30-5.70); RED CELL DISTRIBUTION WIDTH 13.5 % (11.5-14.5); WHITE BLOOD COUNT 6.1 x10^3/uL (4.0-11.0)
[2019-02-03 04:14] LABS: VANC TR 18.3 mcg/mL (10.0-20.0)
[2019-02-03 04:19] LABS: CALCIUM 8.3 mg/dL (8.5-10.1); CREATININE 0.8 mg/dL (0.7-1.3); POTASSIUM 4.8 mmol/L (3.5-5.1)
[2019-02-03] MEDS: PIPERACILLIN/TAZOBACTAM 3.375 GM in IV NORMAL SALINE 50ML 50 ML IV SCH ×3 (05:27→16:55)
[2019-02-03] MEDS: VANCOMYCIN PER PHARMACY MC PRN ×2 (05:43→10:39)
--- NOTE | 2019-02-03 05:43 | NUR ---
Pharmacy Vancomycin Dosing Note S:Consulted to monitor and dose vancomycin started 02/01/19. O:ALTAF MCGUIRE is a 73 year old M with Abscess Cellulitis . Height: 5 feet, 7 inches Weight: 112.784286 kg [place] Body Weight: 204.10 Adjusted Body Weight: 166.86 Dosing Weight: Actual Other Antibiotics: ZOSYN 3.375 GM Q6H LABS: Last BUN: 13 Last Creatinine: 1 Creatinine Clearance: 80 mL/min Last WBC: 5.9 Last Procalcitonin: <0.1 Tmax (past 24 hours): 98.1 Microbiology: 02/02 BCX NGTD, WOUND CX PENDING I/O: 1650/- Drug Levels: Last Trough level: TRUE TROUGH 15.9 on 02/03/19 at 0330 Last dose given 02/01/19 at 1800 Vancomycin Dosing: Loading Dose: 2000 mg x1 Dosing Weight: Actual Target Trough: 10-20 A: Based on: TRUE TROUGH P: 1. Continue Vancomycin 1750 mg IV q12h 2. Follow up Trough level IF NEEDED 3. Pharmacy will continue to monitor, follow and adjust therapy as needed. JAYNE RODRIGUEZ RPH, 02/03/19 0543 Signed: 02/03/19 at 0544 by JAYNE RODRIGUEZ RPH PHA
[2019-02-03] MEDS: VANCOMYCIN 1.75 GM in IV NORMAL SALINE 500ML BAG 500 ML IV SCH ×2 (06:22→17:40)
[2019-02-03 07:00] VITALS: BP 109/51
[2019-02-03] MEDS: LACTOBACILLUS RHAMNOSUS GG 1 CAPSULE. PO SCH ×2 (09:13→20:40)
[2019-02-03 11:00] VITALS: BP 134/56
--- NOTE | 2019-02-03 11:41 | PDOC ---
BOB MALAVE INVENTORY CONTROL MANAGER 02/03/19 1141: SURGICAL PROGRESS NOTE Subjective feels better wants to go home Vital Signs Vital Signs Date Time Temp Pulse Resp B/P (MAP) Pulse Ox O2 Delivery O2 Flow Rate FiO2 02/03/19 11:00 98.0 69 16 134/56 (82) 95 Room Air 98.0 I&O Intake and Output 02/03/19 07:00 Intake Total 740 ml Output Total 201 ml Balance 539 ml Intake Oral 740 ml Output Urine Total 201 ml # Voids 5 General: Alert, Oriented X3, Cooperative, No acute distress Skin: Other (left thigh, less erythema than yesterday, central area dusky, purulent/bloody drainage) Labs Laboratory Tests Test 02/01/19 15:50 02/01/19 19:55 02/02/19 04:00 02/03/19 03:30 White Blood Count 7.2 x10^3/uL (4.0-11.0) 5.9 x10^3/uL (4.0-11.0) 6.1 x10^3/uL (4.0-11.0) Red Blood Count 4.50 x10^6/uL (4.30-5.70) 4.20 x10^6/uL (4.30-5.70) 4.24 x10^6/uL (4.30-5.70) Hemoglobin 14.5 g/dL (13.0-17.5) 13.3 g/dL (13.0-17.5) 13.5 g/dL (13.0-17.5) Hematocrit 42.3 % (39.0-53.0) 39.8 % (39.0-53.0) 40.1 % (39.0-53.0) Mean Corpuscular Volume 94 fL (79-100) 95 fL (79-100) 95 fL (79-100) Mean Corpuscular Hemoglobin 32 pg (25-35) 32 pg (25-35) 32 pg (25-35) Mean Corpuscular Hemoglobin Concent 34 g/dL (31-37) 34 g/dL (31-37) 34 g/dL (31-37) Red Cell Distribution Width 13.6 % (11.5-14.5) 13.8 % (11.5-14.5) 13.5 % (11.5-14.5) Platelet Count 205 x10^3/uL (140-400) 183 x10^3/uL (140-400) 189 x10^3/uL (140-400) Neutrophils (%) (Auto) 78 % (31-73) 75 % (31-73) 71 % (31-73) Lymphocytes (%) (Auto) 9 % (24-48) 11 % (24-48) 12 % (24-48) Monocytes (%) (Auto) 11 % (0-9) 12 % (0-9) 14 % (0-9) Eosinophils (%) (Auto) 2 % (0-3) 2 % (0-3) 3 % (0-3) Basophils (%) (Auto) 0 % (0-3) 1 % (0-3) 1 % (0-3) Neutrophils # (Auto) 5.6 x10^3/uL (1.8-7.7) 4.4 x10^3/uL (1.8-7.7) 4.3 x10^3/uL (1.8-7.7) Lymphocytes # (Auto) 0.6 x10^3/uL (1.0-4.8) 0.6 x10^3/uL (1.0-4.8) 0.7 x10^3/uL (1.0-4.8) Monocytes # (Auto) 0.8 x10^3/uL (0.0-1.1) 0.7 x10^3/uL (0.0-1.1) 0.8 x10^3/uL (0.0-1.1) Eosinophils # (Auto) 0.1 x10^3/uL (0.0-0.7) 0.1 x10^3/uL (0.0-0.7) 0.2 x10^3/uL (0.0-0.7) Basophils # (Auto) 0.0 x10^3/uL (0.0-0.2) 0.0 x10^3/uL (0.0-0.2) 0.0 x10^3/uL (0.0-0.2) Sodium Level 139 mmol/L (136-145) 142 mmol/L (136-145) 144 mmol/L (136-145) Potassium Level 4.3 mmol/L (3.5-5.1) 4.0 mmol/L (3.5-5.1) 4.8 mmol/L (3.5-5.1) Chloride Level 102 mmol/L (98-107) 107 mmol/L (98-107) 108 mmol/L (98-107) Carbon Dioxide Level 26 mmol/L (21-32) 27 mmol/L (21-32) 29 mmol/L (21-32) Anion Gap 11 (6-14) 8 (6-14) 7 (6-14) Blood Urea Nitrogen 13 mg/dL (8-26) 12 mg/dL (8-26) 12 mg/dL (8-26) Creatinine 1.0 mg/dL (0.7-1.3) 1.0 mg/dL (0.7-1.3) 0.8 mg/dL (0.7-1.3) Estimated GFR (Cockcroft-Gault) 73.5 73.5 95.0 BUN/Creatinine Ratio 13 (6-20) Glucose Level 112 mg/dL (70-99) 106 mg/dL (70-99) 114 mg/dL (70-99) Lactic Acid Level 1.3 mmol/L (0.4-2.0) 0.9 mmol/L (0.4-2.0) Calcium Level 8.7 mg/dL (8.5-10.1) 8.3 mg/dL (8.5-10.1) 8.3 mg/dL (8.5-10.1) Total Bilirubin 0.3 mg/dL (0.2-1.0) Aspartate Amino Transf (AST/SGOT) 15 U/L (15-37) Alanine Aminotransferase (ALT/SGPT) 20 U/L (16-63) Alkaline Phosphatase 93 U/L (46-116) Total Protein 6.4 g/dL (6.4-8.2) Albumin 3.5 g/dL (3.4-5.0) Albumin/Globulin Ratio 1.2 (1.0-1.7) Procalcitonin < 0.10 ng/mL (0.00-0.10) Vancomycin Level Trough 18.3 mcg/mL (10.0-20.0) Vancomycin Last Dose Date Vancomycin Last Dose Time Laboratory Tests Test 02/03/19 03:30 White Blood Count 6.1 x10^3/uL (4.0-11.0) Red Blood Count 4.24 x10^6/uL (4.30-5.70) Hemoglobin 13.5 g/dL (13.0-17.5) Hematocrit 40.1 % (39.0-53.0) Mean Corpuscular Volume 95 fL (79-100) Mean Corpuscular Hemoglobin 32 pg (25-35) Mean Corpuscular Hemoglobin Concent 34 g/dL (31-37) Red Cell Distribution Width 13.5 % (11.5-14.5) Platelet Count 189 x10^3/uL (140-400) Neutrophils (%) (Auto) 71 % (31-73) Lymphocytes (%) (Auto) 12 % (24-48) Monocytes (%) (Auto) 14 % (0-9) Eosinophils (%) (Auto) 3 % (0-3) Basophils (%) (Auto) 1 % (0-3) Neutrophils # (Auto) 4.3 x10^3/uL (1.8-7.7) Lymphocytes # (Auto) 0.7 x10^3/uL (1.0-4.8) Monocytes # (Auto) 0.8 x10^3/uL (0.0-1.1) Eosinophils # (Auto) 0.2 x10^3/uL (0.0-0.7) Basophils # (Auto) 0.0 x10^3/uL (0.0-0.2) Sodium Level 144 mmol/L (136-145) Potassium Level 4.8 mmol/L (3.5-5.1) Chloride Level 108 mmol/L (98-107) Carbon Dioxide Level 29 mmol/L (21-32) Anion Gap 7 (6-14) Blood Urea Nitrogen 12 mg/dL (8-26) Creatinine 0.8 mg/dL (0.7-1.3) Estimated GFR (Cockcroft-Gault) 95.0 Glucose Level 114 mg/dL (70-99) Calcium Level 8.3 mg/dL (8.5-10.1) Vancomycin Level Trough 18.3 mcg/mL (10.0-20.0) Vancomycin Last Dose Date Vancomycin Last Dose Time Problem List Problems Medical Problems: (1) Cellulitis and abscess of lower extremity Status: Acute Assessment/Plan wound care, abx monitor wound STEPHANIE CHO MD 02/03/19 1334: SURGICAL PROGRESS NOTE Assessment/Plan Pt seen and examined. Agree with Ms. Malave's note Pt feels better, left leg with healing area US with small fluid collection, appears to be improving with wound care and IV abx. BOB MALAVE APRN Feb 03, 2019 11:41 STEPHANIE CHO MD Feb 03, 2019 13:34
--- NOTE | 2019-02-03 12:11 | PDOC ---
[facility] PROGRESS NOTE Chief Complaint Chief Complaint Left thigh cellulitis Dental abscess Obesity Prior hx of cancer History of Present Illness History of Present Illness 8�17�2019 Patient seen and examined Discussed with RN He appears to be his baseline Erythema is better We'll discharge on by mouth Augmentin if okay with surgery 02/02/19 Pt seen and examined (area of erythema on left thigh marked w/ pen to monitor infection) Chart reviewed DW RN Vitals/I&O Vitals/I&O: Vital Signs Date Time Temp Pulse Resp B/P (MAP) Pulse Ox O2 Delivery O2 Flow Rate FiO2 02/03/19 11:00 98.0 69 16 134/56 (82) 95 Room Air 98.0 I & O 02/02/19 02/02/19 02/03/19 15:00 23:00 07:00 Intake Total 0 ml 500 ml 240 ml Output Total 200 ml 1 ml Balance -200 ml 499 ml 240 ml Physical Exam General: Alert, Oriented X3, Cooperative, No acute distress Heart: Regular rate, Normal S1, Normal S2, No murmurs Lungs: Clear Abdomen: Normal bowel sounds, Soft, No tenderness Extremities: No clubbing, No cyanosis, Other (left thigh cellulitis) Skin: Other (left thigh, less erythema than yesterday, central area dusky, purulent/bloody drainage) Labs Labs: Laboratory Tests Test 02/03/19 03:30 White Blood Count 6.1 x10^3/uL (4.0-11.0) Red Blood Count 4.24 x10^6/uL (4.30-5.70) Hemoglobin 13.5 g/dL (13.0-17.5) Hematocrit 40.1 % (39.0-53.0) Mean Corpuscular Volume 95 fL (79-100) Mean Corpuscular Hemoglobin 32 pg (25-35) Mean Corpuscular Hemoglobin Concent 34 g/dL (31-37) Red Cell Distribution Width 13.5 % (11.5-14.5) Platelet Count 189 x10^3/uL (140-400) Neutrophils (%) (Auto) 71 % (31-73) Lymphocytes (%) (Auto) 12 % (24-48) Monocytes (%) (Auto) 14 % (0-9) Eosinophils (%) (Auto) 3 % (0-3) Basophils (%) (Auto) 1 % (0-3) Neutrophils # (Auto) 4.3 x10^3/uL (1.8-7.7) Lymphocytes # (Auto) 0.7 x10^3/uL (1.0-4.8) Monocytes # (Auto) 0.8 x10^3/uL (0.0-1.1) Eosinophils # (Auto) 0.2 x10^3/uL (0.0-0.7) Basophils # (Auto) 0.0 x10^3/uL (0.0-0.2) Sodium Level 144 mmol/L (136-145) Potassium Level 4.8 mmol/L (3.5-5.1) Chloride Level 108 mmol/L (98-107) Carbon Dioxide Level 29 mmol/L (21-32) Anion Gap 7 (6-14) Blood Urea Nitrogen 12 mg/dL (8-26) Creatinine 0.8 mg/dL (0.7-1.3) Estimated GFR (Cockcroft-Gault) 95.0 Glucose Level 114 mg/dL (70-99) Calcium Level 8.3 mg/dL (8.5-10.1) Vancomycin Level Trough 18.3 mcg/mL (10.0-20.0) Vancomycin Last Dose Date Vancomycin Last Dose Time Assessment and Plan Assessmemt and Plan Problems Medical Problems: (1) Cellulitis and abscess of lower extremity Status: Acute Comment Review of Relevant I have reviewed the following items edgar (where applicable) has been applied. KAYKAY SANCHEZ III, DO Feb 03, 2019 12:11
[2019-02-03 15:00] VITALS: BP 134/64
--- NOTE | 2019-02-03 16:50 | DS ---
DATE OF DISCHARGE: 02/03/2019 ADMISSION DIAGNOSIS: Left thigh abscess. DISCHARGE DIAGNOSIS: Status post incision and drainage of left thigh abscess. HOSPITAL COURSE: The patient is a pleasant 73-year-old male who presented with a left thigh abscess. He was admitted. We had the abscess drained. Dr. Deluca has also been consulted. We have given IV antibiotics today. I saw him and examined him. He is doing well. Heart tones are normal. Lungs are clear. The abscess is less erythematous. We plan to discharge on p.o. Augmentin. DISPOSITION: Home. ACTIVITY: As tolerated. DIET: Low sodium. MEDICATIONS: Please see MRAD. TOTAL TIME: 34 minutes. SABINAL Eliz SANCHEZ DO DR: MARIANO/isidro JOB#: [id number] / [id number]
[2019-02-03 19:15] VITALS: BP 117/64
[2019-02-03] MEDS: ENOXAPARIN 40 MG/0.4 ML SYRINGE. SQ SCH (20:40)
[2019-02-03 23:00] VITALS: BP 141/61
[2019-02-04] MEDS: PIPERACILLIN/TAZOBACTAM 3.375 GM in IV NORMAL SALINE 50ML 50 ML IV SCH ×3 (00:02→12:00)
[2019-02-04 03:00] VITALS: BP 133/62
[2019-02-04 04:37] LABS: BASO # 0.1 x10^3/uL (0.0-0.2); BASO % 1 % (0-3); EOS # 0.2 x10^3/uL (0.0-0.7); EOS % 4 % (0-3); HEMOGLOBIN 13.5 g/dL (13.0-17.5); LYMPH # 0.8 x10^3/uL (1.0-4.8); LYMPH % 15 % (24-48); MEAN CORPUSCULAR HEMOGLOBIN 32 pg (25-35); MEAN CORPUSCULAR HGB CONC 34 g/dL (31-37); MEAN CORPUSCULAR VOLUME 95 fL (79-100); MONO # 0.7 x10^3/uL (0.0-1.1); MONO % 13 % (0-9); NEUT # 3.7 x10^3/uL (1.8-7.7); NEUT % 68 % (31-73); PLATELET COUNT 188 x10^3/uL (140-400); RED BLOOD COUNT 4.23 x10^6/uL (4.30-5.70); RED CELL DISTRIBUTION WIDTH 13.6 % (11.5-14.5); WHITE BLOOD COUNT 5.5 x10^3/uL (4.0-11.0)
[2019-02-04 05:05] LABS: CALCIUM 8.9 mg/dL (8.5-10.1); CREATININE 0.9 mg/dL (0.7-1.3); GFR 82.9; POTASSIUM 3.9 mmol/L (3.5-5.1)
[2019-02-04] MEDS: VANCOMYCIN 1.75 GM in IV NORMAL SALINE 500ML BAG 500 ML IV SCH (05:39)
[2019-02-04 07:59] VITALS: BP 136/58
[2019-02-04] MEDS: VANCOMYCIN PER PHARMACY MC PRN (08:28)
[2019-02-04] MEDS: LACTOBACILLUS RHAMNOSUS GG 1 CAPSULE. PO SCH (08:44)
[2019-02-04 11:40] VITALS: BP 137/81
--- NOTE | 2019-02-04 11:57 | PDOC ---
SURGICAL PROGRESS NOTE Subjective feels good wants to go home Vital Signs Vital Signs Date Time Temp Pulse Resp B/P (MAP) Pulse Ox O2 Delivery O2 Flow Rate FiO2 02/04/19 08:00 Room Air 02/04/19 07:59 98.1 69 20 136/58 (84) 95 98.1 I&O Intake and Output 02/04/19 07:00 Intake Total 840 ml Balance 840 ml Intake Oral 240 ml IV Total 600 ml # Voids 2 General: Alert, Oriented X3, Cooperative, No acute distress Skin: Other (erythema significantly improved, wound with drainage ) Labs Laboratory Tests Test 02/03/19 03:30 02/04/19 04:15 02/04/19 04:25 White Blood Count 6.1 x10^3/uL (4.0-11.0) 5.5 x10^3/uL (4.0-11.0) Red Blood Count 4.24 x10^6/uL (4.30-5.70) 4.23 x10^6/uL (4.30-5.70) Hemoglobin 13.5 g/dL (13.0-17.5) 13.5 g/dL (13.0-17.5) Hematocrit 40.1 % (39.0-53.0) 40.0 % (39.0-53.0) Mean Corpuscular Volume 95 fL (79-100) 95 fL (79-100) Mean Corpuscular Hemoglobin 32 pg (25-35) 32 pg (25-35) Mean Corpuscular Hemoglobin Concent 34 g/dL (31-37) 34 g/dL (31-37) Red Cell Distribution Width 13.5 % (11.5-14.5) 13.6 % (11.5-14.5) Platelet Count 189 x10^3/uL (140-400) 188 x10^3/uL (140-400) Neutrophils (%) (Auto) 71 % (31-73) 68 % (31-73) Lymphocytes (%) (Auto) 12 % (24-48) 15 % (24-48) Monocytes (%) (Auto) 14 % (0-9) 13 % (0-9) Eosinophils (%) (Auto) 3 % (0-3) 4 % (0-3) Basophils (%) (Auto) 1 % (0-3) 1 % (0-3) Neutrophils # (Auto) 4.3 x10^3/uL (1.8-7.7) 3.7 x10^3/uL (1.8-7.7) Lymphocytes # (Auto) 0.7 x10^3/uL (1.0-4.8) 0.8 x10^3/uL (1.0-4.8) Monocytes # (Auto) 0.8 x10^3/uL (0.0-1.1) 0.7 x10^3/uL (0.0-1.1) Eosinophils # (Auto) 0.2 x10^3/uL (0.0-0.7) 0.2 x10^3/uL (0.0-0.7) Basophils # (Auto) 0.0 x10^3/uL (0.0-0.2) 0.1 x10^3/uL (0.0-0.2) Sodium Level 144 mmol/L (136-145) 144 mmol/L (136-145) Potassium Level 4.8 mmol/L (3.5-5.1) 3.9 mmol/L (3.5-5.1) Chloride Level 108 mmol/L (98-107) 107 mmol/L (98-107) Carbon Dioxide Level 29 mmol/L (21-32) 29 mmol/L (21-32) Anion Gap 7 (6-14) 8 (6-14) Blood Urea Nitrogen 12 mg/dL (8-26) 14 mg/dL (8-26) Creatinine 0.8 mg/dL (0.7-1.3) 0.9 mg/dL (0.7-1.3) Estimated GFR (Cockcroft-Gault) 95.0 82.9 Glucose Level 114 mg/dL (70-99) 124 mg/dL (70-99) Calcium Level 8.3 mg/dL (8.5-10.1) 8.9 mg/dL (8.5-10.1) Vancomycin Level Trough 18.3 mcg/mL (10.0-20.0) Vancomycin Last Dose Date Vancomycin Last Dose Time Laboratory Tests Test 02/04/19 04:15 02/04/19 04:25 White Blood Count 5.5 x10^3/uL (4.0-11.0) Red Blood Count 4.23 x10^6/uL (4.30-5.70) Hemoglobin 13.5 g/dL (13.0-17.5) Hematocrit 40.0 % (39.0-53.0) Mean Corpuscular Volume 95 fL (79-100) Mean Corpuscular Hemoglobin 32 pg (25-35) Mean Corpuscular Hemoglobin Concent 34 g/dL (31-37) Red Cell Distribution Width 13.6 % (11.5-14.5) Platelet Count 188 x10^3/uL (140-400) Neutrophils (%) (Auto) 68 % (31-73) Lymphocytes (%) (Auto) 15 % (24-48) Monocytes (%) (Auto) 13 % (0-9) Eosinophils (%) (Auto) 4 % (0-3) Basophils (%) (Auto) 1 % (0-3) Neutrophils # (Auto) 3.7 x10^3/uL (1.8-7.7) Lymphocytes # (Auto) 0.8 x10^3/uL (1.0-4.8) Monocytes # (Auto) 0.7 x10^3/uL (0.0-1.1) Eosinophils # (Auto) 0.2 x10^3/uL (0.0-0.7) Basophils # (Auto) 0.1 x10^3/uL (0.0-0.2) Sodium Level 144 mmol/L (136-145) Potassium Level 3.9 mmol/L (3.5-5.1) Chloride Level 107 mmol/L (98-107) Carbon Dioxide Level 29 mmol/L (21-32) Anion Gap 8 (6-14) Blood Urea Nitrogen 14 mg/dL (8-26) Creatinine 0.9 mg/dL (0.7-1.3) Estimated GFR (Cockcroft-Gault) 82.9 Glucose Level 124 mg/dL (70-99) Calcium Level 8.9 mg/dL (8.5-10.1) Problem List Problems Medical Problems: (1) Cellulitis and abscess of lower extremity Status: Acute Assessment/Plan ok to dc home FU in wound clinic dressings as per BOB WILSON BICYCLE COU[employer]ER Feb 04, 2019 11:57
--- NOTE | 2019-02-04 13:37 | PDOC ---
[employer] [facility] PROGRESS NOTE Chief Complaint Chief Complaint Left thigh cellulitis Dental abscess Obesity Prior hx of cancer History of Present Illness History of Present Illness 02/04/19 Pt seen and examined (appears well; in no acute distress) Erythema appears improved Chart reviewed NICOLAS CASTANEDA 8�17�2019 Patient seen and examined Discussed with RN He appears to be his baseline Erythema is better We'll discharge on by mouth Augmentin if okay with surgery 02/02/19 Pt seen and examined (area of erythema on left thigh marked w/ pen to monitor infection) Chart reviewed NICOLAS CASTANEDA Vitals/I&O Vitals/I&O: Vital Signs Date Time Temp Pulse Resp B/P (MAP) Pulse Ox O2 Delivery O2 Flow Rate FiO2 02/04/19 11:40 98.3 76 18 137/81 (99) 95 Room Air 98.3 I & O 0 02/03/19 02/03/19 02/04/19 15:00 23:00 07:00 Intake Total 620 ml 220 ml Balance 620 ml 220 ml Physical Exam General: Alert, Oriented X3, Cooperative, No acute distress Heart: Regular rate, Normal S1, Normal S2, No murmurs Lungs: Clear Abdomen: Normal bowel sounds, Soft, No tenderness Extremities: No clubbing, No cyanosis, Other (left thigh cellulitis) Skin: Other (erythema significantly improved, wound with drainage ) Labs Labs: Laboratory Tests Test 02/04/19 04:15 02/04/19 04:25 White Blood Count 5.5 x10^3/uL (4.0-11.0) Red Blood Count 4.23 x10^6/uL (4.30-5.70) Hemoglobin 13.5 g/dL (13.0-17.5) Hematocrit 40.0 % (39.0-53.0) Mean Corpuscular Volume 95 fL (79-100) Mean Corpuscular Hemoglobin 32 pg (25-35) Mean Corpuscular Hemoglobin Concent 34 g/dL (31-37) Red Cell Distribution Width 13.6 % (11.5-14.5) Platelet Count 188 x10^3/uL (140-400) Neutrophils (%) (Auto) 68 % (31-73) Lymphocytes (%) (Auto) 15 % (24-48) Monocytes (%) (Auto) 13 % (0-9) Eosinophils (%) (Auto) 4 % (0-3) Basophils (%) (Auto) 1 % (0-3) Neutrophils # (Auto) 3.7 x10^3/uL (1.8-7.7) Lymphocytes # (Auto) 0.8 x10^3/uL (1.0-4.8) Monocytes # (Auto) 0.7 x10^3/uL (0.0-1.1) Eosinophils # (Auto) 0.2 x10^3/uL (0.0-0.7) Basophils # (Auto) 0.1 x10^3/uL (0.0-0.2) Sodium Level 144 mmol/L (136-145) Potassium Level 3.9 mmol/L (3.5-5.1) Chloride Level 107 mmol/L (98-107) Carbon Dioxide Level 29 mmol/L (21-32) Anion Gap 8 (6-14) Blood Urea Nitrogen 14 mg/dL (8-26) Creatinine 0.9 mg/dL (0.7-1.3) Estimated GFR (Cockcroft-Gault) 82.9 Glucose Level 124 mg/dL (70-99) Calcium Level 8.9 mg/dL (8.5-10.1) Review of Systems Review of Systems: No headache No fever/chills Assessment and Plan Assessmemt and Plan Problems Medical Problems: (1) Cellulitis and abscess of lower extremity Status: Acute Assessment: Community acquired pneumonia White coat syndrome Anxiety Fever SOB Nausea & vomiting Plan: Await cultures IV antibiotics Hopeful D/C later if ok w/ subspecialist input PT/OT Home meds DVT prophylaxis Comment Review of Relevant I have reviewed the following items edgar (where applicable) has been applied. KAYKAY SANCHEZ III DO Feb 04, 2019 13:37
--- NOTE | 2019-02-04 16:41 | NUR ---
Discharge Note: CESAR MCGUIRE Discharge instructions and discharge home medications reviewed with Patient and a copy given. All questions have been answered and understanding verbalized. The following instructions and handouts were given: Discharge Instructions, Wound Care, Follow Up Instructions, and Cellulitis Teaching Discontinued lines and drains: PIV removed, Catheter intact. Patient discharged to Home with Self-Care via Private Vehicle
== END 2019-02-04 14:05 | disposition home or self-care (01) | DRG 603 ==
LOC: ER 15:06 → 5 SOUTH 18:24
PROVIDERS: ADMIT Internal Medicine; ATTEND Internal Medicine
PROC: 0Y9J0ZZ Drainage of Left Lower Leg, Open Approach (ICD-10-PCS; principal; 2019-02-01)
DX: L03.116 Cellulitis of left lower limb (principal); L02.416 Cutaneous abscess of left lower limb; K04.7 Periapical abscess without sinus; E66.9 Obesity, unspecified; F41.9 Anxiety disorder, unspecified; Z68.38 Body mass index [BMI] 38.0-38.9, adult
CPT/HCPCS: 10060; 36415; 76882; 80048; 80053; 80202; 83605; 84145; 85025; 87040; 87070; 87186; 90471; 90715; 96365; 96367; 96375; 96376; J1650; J2270; J2543; J3370; J3490; J7030; J7040; 99285-25; G0378

== ENCOUNTER 2019-08-29 12:55 | Emergency (ER) | payer MEDICARE, OTHER ==
[~2019-08-29] VITALS: Ht 170.2 cm; Wt 115.0 kg
[~2019-08-29 12:55] MED LIST: CARB15DR3 OP; CITA40TA5 PO; FLUT16SP; GUAI12003 PO; SULF-143; TAMS0.4C97 PO; TAMSULOSIN PO
[2019-08-29] MEDS ORDERED: LIDOCAINE 1% PF 2 ML VIAL. INJ ONE (14:00)
[2019-08-29] MEDS ORDERED: NEOMY/BACITR/POLYMYXIN OINT PACKET. TP ONE (14:00)
--- NOTE | 2019-08-29 14:00 | PHYS DOC ---
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 Patient reports he was walking the sidewalk today, when he had tripped and fallen, landing on his face. States he and try to get himself with his right hand as well. Denies any pulse Lovenox notes. Denies any dizziness. Denies any discomfort prior to falling. States he had just tripped over the sidewalk. States he had just left having his blood drawn at the clinic. Denies any visual changes. Denies any pain to wrist, arms, neck, back. Review of Systems Review of Systems Constitutional: Denies fever or chills [] Eyes: Denies change in visual acuity, redness, or eye pain [] Respiratory: Denies cough or shortness of breath [] GI: Denies abdominal pain, nausea, vomiting, bloody stools or diarrhea [] Musculoskeletal: Denies back pain or joint pain [] Integument: Denies rash reports abrasion to face, her right hand. [] Neurologic: Denies headache, focal weakness or sensory changes denies dizziness preceding or following fall [] All other systems were reviewed and found to be within normal limits, except as documented in this note. Current Medications Current Medications Current Medications Medications (Trade) Dose Ordered Sig/Tereso Start Time Stop Time Status Last Admin Dose Admin Lidocaine HCl (Xylocaine-Mpf 1% 2ml Vial) 2 ml 1X ONCE 08/29/19 14:00 08/29/19 14:01 DC 08/29/19 14:00 2 ML Neomycin/ Polymyxin/ Bacitracin (Triple Antibiotic Ointment) 1 pkt 1X ONCE 08/29/19 14:00 08/29/19 14:01 DC 08/29/19 14:00 1 PKT Allergies Allergies Allergies Coded Allergies Type Severity Reaction Last Updated Verified No Known Drug Allergies 02/01/19 No Physical Exam Physical Exam Constitutional: Well developed, well nourished, no acute distress, non-toxic appearance. [] HENT: Normocephalic, oropharynx moist, no oral exudates, nose normal with abrasion noted to bridge of nose. Abrasion and hematoma noted to right forehead, superior to right eye, approximately 2 cm diameter hematoma raised 1 cm with overlying abrasion. [] Eyes: PERRLA, EOMI, conjunctiva normal, no discharge. [] Neck: Normal range of motion, no tenderness, supple, no stridor. Full range of motion,no spinous process tenderness [] Cardiovascular:Heart rate regular rhythm, no murmur [] Lungs & Thorax: Bilateral breath sounds clear to auscultation [] Skin: Warm, dry, no erythema, no rash. Abrasions noted to face, right posterior hand. 1 cm laceration noted to medial aspect of left fifth digit at middle pharyngeal joint [] Back: No tenderness, no abrasions, no tenderness noted. [] Extremities: No tenderness, no cyanosis, no clubbing, ROM intact, no edema. Full range of motion to extremities, full range of motion to right wrist, right elbow, no tenderness elicited on palpation or on movement of arm. No deformity noted. [] Neurologic: Alert and oriented X 3, normal motor function, normal sensory function, no focal deficits noted. [] Psychologic: Affect normal, judgement normal, mood normal. [] Current Patient Data Vital Signs Vital Signs Date Time Temp Pulse Resp B/P (MAP) Pulse Ox O2 Delivery O2 Flow Rate FiO2 08/29/19 13:19 98.5 69 18 137/78 (97) 94 Room Air 98.5 Lab Values Laboratory Tests Test 08/29/19 15:03 Urine Collection Type Unknown Urine Color Yellow Urine Clarity Cloudy Urine pH 6.0 (<5.0-8.0) Urine Specific Friant 1.020 (1.000-1.030) Urine Protein Negative mg/dL (NEG-TRACE) Urine Glucose (UA) Negative mg/dL (NEG) Urine Ketones (Stick) Trace mg/dL (NEG) Urine Blood Small (NEG) Urine Nitrite Negative (NEG) Urine Bilirubin Negative (NEG) Urine Urobilinogen Dipstick 0.2 mg/dL (0.2 mg/dL) Urine Leukocyte Esterase Large (NEG) Urine RBC Occ /HPF (0-2) Urine WBC Tntc /HPF (0-4) Urine Squamous Epithelial Cells Few /LPF Urine Bacteria Few /HPF (0-FEW) Urine Mucus Slight /LPF EKG EKG [] Radiology/Procedures Radiology/Procedures [] Course & Med Decision Making Course & Med Decision Making Pertinent Labs and Imaging studies reviewed. (See chart for details) [] Dragon Disclaimer Dragon Disclaimer This electronic medical record was generated, in whole or in part, using a voice recognition dictation system. Laceration Repair Lac Repair Indication: Laceration [] Procedure: The patient was placed in the appropriate position and anesthesia with digital block was performed of the right fifth digit. The area was cleansed with sterile saline. Three 4/0 nylon simple interrupted sutures placed. Wound well approximated. Well-tolerated by patient. Total laceration length was 1 cm. Departure Departure Impression: Primary Impression: Fall Additional Impressions: Laceration Urinary tract infection Disposition: HOME, SELF-CARE Condition: STABLE Referrals: NATALIIA MAY MD (PCP) Patient Instructions: Fall Prevention and Home Safety, Laceration Care, Adult, - Urinary Tract Infection Additional Instructions: Your stitches can come out in 5 to 7 days. You may do this in the emergency room, your primary care provider's office, or even an urgent care can remove your stitches. You should apply triple antibiotic cement, or Neosporin on your other abrasions 3-4 times a day for the next few days as well. Take the antibiotic as prescribed for your urinary tract infection, follow-up with your primary care provider or your urologist in the next week to recheck on the symptoms. Scripts Ciprofloxacin Hcl (CIPROFLOXACIN HCL) 500 Mg Tablet 500 MG PO BID for 7 Days, #14 TAB Prov: MELISSA OH APRN 08/29/19 Problem Qualifiers Primary Impression: Fall Encounter type: initial encounter Qualified Codes: W19.XXXA - Unspecified fall, initial encounter Additional Impressions: Urinary tract infection Urinary tract infection type: acute cystitis Hematuria presence: with hematuria Qualified Codes: N30.01 - Acute cystitis with hematuria MELISSA OH APRN Aug 29, 2019 14:00
--- NOTE | 2019-08-29 14:21 | RAD ---
CT HEAD WO CONTRAST Date: 08/29/2019 2:00 PM Clinical Indication: Fall, head injury, pain, trauma Comparison: None. Technique: 5 mm axial tomographic images were obtained of the head without contrast. These were viewed on brain and bone windows. One or more of the following dose reduction techniques were utilized: Automated exposure control (AEC), Adjustment of mA and/or kV according to patient size, Use of iterative reconstruction technique such as ASiR, CT scan done according to ALARA and image gently/image wisely Findings: The brain parenchyma is normal in attenuation. No intra- or extra-axial mass or fluid collection. No acute hemorrhage. The ventricles are normal in size, shape, and morphology. The vides-white matter junction is normal. The subarachnoid cisterns are patent. The visualized paranasal sinuses are normal. The visualized portions of the orbits and globes are normal. The mastoid air cells are clear. The massage therapist topogram shows no lytic lesion or fracture. Right frontal scalp swelling. Impression: No acute intracranial process. Right frontal scalp swelling. Electronically signed by: Kameron Jimenes MD (08/29/2019 2:19 PM) [id number]
[2019-08-29 14:53] VITALS: BP 158/83
[2019-08-29 15:13] LABS: BILIRUBIN,URINE NEGATIVE (NEG); CLARITY,URINE CLOUDY; COLOR,URINE YELLOW; NITRITE,URINE NEGATIVE (NEG); PROTEIN,URINE NEGATIVE (NEG-TRACE); UROBILINOGEN,URINE 0.2 mg/dL (0.2 mg/dL)
[2019-08-29 15:19] LABS: SQUAMOUS EPITHELIAL CELL,UR FEW /LPF
[2019-08-29 15:20] LABS: BACTERIA,URINE FEW /HPF (0-FEW); RBC,URINE OCC /HPF (0-2); WBC,URINE TNTC /HPF (0-4)
[2019-08-29] MEDS ORDERED: CIPR500T PO (15:33)
== END 2019-08-29 16:20 | disposition home or self-care (01) ==
LOC: ER 12:55
DX: S61.216A Laceration without foreign body of right little finger without damage to nail, initial encounter (principal); S60.511A Abrasion of right hand, initial encounter; N30.01 Acute cystitis with hematuria; Z87.891 Personal history of nicotine dependence; W01.0XXA Fall on same level from slipping, tripping and stumbling without subsequent striking against object, initial encounter; Y93.01 Activity, walking, marching and hiking; Y92.89 Other specified places as the place of occurrence of the external cause; Y99.8 Other external cause status
CPT/HCPCS: 12001; 70450; 81001; 87086; 99284; J3490